=== PATIENT | female | born 1990 | race Caucasian/White ===

== ENCOUNTER 2017-07-11 23:31 | Emergency (ER) | payer MEDICAID ==
[2017-07-11 23:42] VITALS: BP 109/56
--- NOTE | 2017-07-12 00:02 | ED Physician Documentation ---
PD HPI WOUND RECHECK - Stated complaint Stated Complaint: REDNESS AROUND C SECTION SCAR - Chief complaint Chief Complaint: Wound - Histroy obtained from History obtained from: Patient, Family - History of Present Illness Location: Abdomen Associated symptoms: Redness Similar symptoms before: Work up / diagnostics, Treatment Recently seen: Clinic - Additional information Additional information: Patient is a 26 year old female status Post on 06/28/17 who is presenting to the emergency department for wound check. According to patient and mother the patient's wound was complicated by infection and dehisence. Patient has been following up with the clinic and has been changing the dressings. patient is currently on antibiotics. Family wanted to get it checked to make sure everything was doing ok. Patient denies nausea, vomiting, fever or chills. Review of Systems Constitutional: denies: Fever, Chills GI: denies: Abdominal Pain, Nausea, Vomiting : denies: Dysuria, Frequency, Hesitancy Skin: reports: Lesions, Laceration (s) Musculoskeletal: denies: Back pain, Extremity pain Immunocompromised: denies: Immunocompromised PD PAST MEDICAL HISTORY - Past Medical History Past Medical History: No - Past Surgical History Past Surgical History: Yes /[employer]: section - Social History Does the pt smoke?: No Smoking Status: Never smoker Does the pt drink ETOH?: No Does the pt have substance abuse?: No - Immunizations Immunizations are current?: Yes PD ED PE NORMAL - Vitals Vital signs reviewed: Yes - General General: Alert and oriented X 3, No acute distress - HEENT HEENT: Atraumatic - Cardiac Cardiac: RRR - Respiratory Respiratory: No respiratory distress - Abdomen Abdomen: Soft - Extremities Extremities: No deformity - Neuro Neuro: Alert and oriented X 3 - Psych Psych: Normal mood PD ED PE EXPANDED - Abdomen Abdomen: Surgical scars (open surgical wound approximately 5cm long and 2 cm deep, granulation tissue, no purulent discharge, no tenderness or surrounding erythema) Results - Vitals Vitals: Vital Signs - 24 hr 07/11/17 23:37 Temperature 36.4 C L Heart Rate 74 Respiratory 18 Rate Blood Pressure 109/56 L O2 Saturation 99 Oxygen O2 Source Room air PD MEDICAL DECISION MAKING - ED course Complexity details: reviewed old records, reviewed results, re-evaluated patient , considered differential, d/w patient, d/w family ED course: Patient was seen and examined at bedside. patient was well appearing and patient's wound had no sign of acute infection. Patient's wound was dressed and patient was stable for discharge with outpatient follow up. Departure - Departure Disposition: 01 Home, Self Care Clinical Impression: Wound dehiscence, Condition: Good Instructions: ED Wound Care Follow-Up: primary,care provider [Other] - Within 3 Days Comments: Your wound appears to be healing well. there is no sign of acute infection. You should continue with your antibiotics and wound care. You should follow up with your doctor at your next scheduled visit. You may return to the emergency department at any time for new, worsening or uncontrollable symptoms.
== END 2017-07-12 00:35 | disposition home or self-care (01) ==
LOC: ED 23:31
DX: O90.0 Disruption of cesarean delivery wound (principal)
CPT/HCPCS: 99282; 99283